=== PATIENT | male | born 1980 | race Caucasian/White ===

== ENCOUNTER 2023-04-18 14:22 | Emergency (ER) | payer OTHER ==
[2023-04-18 14:44] VITALS: BP 127/88
[2023-04-18 15:45] LABS: APPEARANCE,URINE SLT CLOUDY; BILIRUBIN,URINE NEGATIVE (NEGATIVE); COLOR,URINE YELLOW; GLUCOSE,URINE NEGATIVE (NEGATIVE); KETONES,URINE NEGATIVE (NEGATIVE); LEUKOCYTE ESTERASE,URINE NEGATIVE (NEGATIVE); NITRITE,URINE NEGATIVE (NEGATIVE); OCCULT BLOOD,URINE NEGATIVE (NEGATIVE); PH,URINE 7.5 (5.0-8.0); PROTEIN,URINE NEGATIVE (NEGATIVE); UROBILINOGEN,URINE 0.2 EU/dL (<2.0)
[2023-04-18 15:57] LABS: BASOPHILS ABSOLUTE AUTO 0.07 K/uL (0.00-0.20); BASOPHILS PERCENT AUTO 1.1 % (0.0-1.0); EOSINOPHILS ABSOLUTE AUTO 0.15 K/uL (0.00-0.45); EOSINOPHILS PERCENT AUTO 2.3 % (0.0-6.0); HEMATOCRIT 47.1 % (42.0-52.0); HEMOGLOBIN 17.1 g/dL (14.0-18.0); IMMATURE GRAN ABSOLUTE AUTO 0.02 K/uL (0.00-0.05); IMMATURE GRAN PERCENT AUTO 0.3 % (0.0-0.4); LYMPHOCYTES ABSOLUTE AUTO 2.36 K/uL (1.00-4.80); LYMPHOCYTES PERCENT AUTO 36.5 % (24.0-44.0); MEAN CORPUSCULAR HEMOGLOBIN 31.4 pg (28.0-32.0); MEAN CORPUSCULAR HGB CONC 36.3 g/dL (32.0-36.0); MEAN CORPUSCULAR VOLUME 86.4 fL (83.0-99.0); MEAN PLATELET VOLUME 9.7 fL (9.4-12.4); MONOCYTES ABSOLUTE AUTO 0.43 K/uL (0.00-0.80); MONOCYTES PERCENT AUTO 6.6 % (0.0-8.0); NEUTROPHILS ABSOLUTE AUTO 3.44 K/uL (1.80-7.70); NEUTROPHILS PERCENT AUTO 53.2 % (41.0-71.0); PLATELET COUNT,PLT 224 K/uL (150-400); RED BLOOD CELL COUNT 5.45 M/uL (4.52-5.90); WHITE BLOOD CELL COUNT,WBC 6.47 K/uL (3.9-11.3)
[2023-04-18 16:19] LABS: A/G RATIO 1.2 (0.9-1.6); ALBUMIN 4.1 g/dL (3.4-5.0); BILIRUBIN TOTAL 0.4 mg/dL (0.2-1.0); CARBON DIOXIDE,CO2 30.1 mmol/L (21.0-32.0); CREATININE 1.3 mg/dL (0.8-1.3); EST CRCL DRUG DOSING (CG) 78.04 mL/min; POTASSIUM,K 4.3 mmol/L (3.5-5.1); PROTEIN TOTAL,TP 7.5 g/dL (6.4-8.2)
[2023-04-18] MEDS ORDERED: Acetaminophen/HYDROcodone 325-10 MG Tab PO ONE (16:35)
[2023-04-18 18:48] VITALS: PULSE 74
== END 2023-04-18 18:48 | disposition home or self-care (01) ==
LOC: MW.ED 14:22
DX: R10.9 Unspecified abdominal pain (principal); Z79.899 Other long term (current) drug therapy
CPT/HCPCS: 36415; 74176; 80053; 81003; 85025; 99284; A9270